=== PATIENT | male | born 1995 | race Caucasian/White ===

== ENCOUNTER 2021-02-07 16:32 | Emergency (ER) | payer OTHER ==
[2021-02-07 16:57] VITALS: BP 118/78; PULSE 92; TEMP 98.3; BMI 22.3
== END 2021-02-07 18:01 | disposition home or self-care (01) ==
LOC: FER 16:32
DX: N50.811 Right testicular pain (principal)
CPT/HCPCS: 76870-TC; 81003; 87086; 99284-25